=== PATIENT | female | born 1995 ===

== ENCOUNTER 2017-08-21 13:01 | Emergency (ER) | payer OTHER ==
[2017-08-21 13:01] VITALS: BMI 21.7
[2017-08-21] MEDS ORDERED: Sodium Chloride 0.9% 1,000 ML IV STA (13:24)
--- NOTE | 2017-08-21 14:02 | ED PDOC ---
HPI: General Adult Time Seen by Provider: 08/21/17 13:16 Chief Complaint (Nursing): Back Pain Chief Complaint (Provider): Back Pain and abdominal pain History Per: Patient History/Exam Limitations: no limitations Onset/Duration Of Symptoms: Days (3 days) Additional Complaint(s): 21 year old female presents to the emergency department with a complaint of a right lower back pain radiating to the right lower abdominal region x3 days. States that pain is worse when laying on affected side and is unrelated to movement. Further states that she was checking her sisters temperature who had a fever and checked hers with results of 100.5, tympanic although she was not feeling febrile. Reports taking Motrin around 6am today, 08/21/2017. Denies previous abdominal surgeries, chest pain, shortness of breath, pain with micturition, blood in urine, frequency, urgency, bowel/bladder incontinence, nausea, vomiting, or diarrhea. Last bowel movement: Sunday on 08/18/2017. ( This is normal for patient) Past Medical History Reviewed: Historical Data, Nursing Documentation, Vital Signs Vital Signs: Last Vital Signs Temp 98.0 F 08/21/17 16:22 Pulse 74 08/21/17 16:22 Resp 16 08/21/17 16:22 BP 114/72 08/21/17 16:22 Pulse Ox 98 08/21/17 16:22 - Medical History PMH: Gastritis - Surgical History Surgical History: Endoscopy - Family History Family History: States: No Known Family Hx - Immunization History Hx Tetanus Toxoid Vaccination: Yes Hx Influenza Vaccination: No Hx Pneumococcal Vaccination: No - Home Medications Home Medications: Ambulatory Orders Medication Instructions Recorded Sennosides [Perdiem] 15 mg PO DAILY 12/24/13 Ibuprofen [Motrin Tab] 600 mg PO Q6 PRN #12 tab 08/21/17 Sulfamethoxazole/Trimethoprim 1 tab PO BID #14 tab 08/21/17 [Bactrim DS 800 mg-160 mg] - Allergies Allergies/Adverse Reactions: Allergies Allergy/AdvReac Type Severity Reaction Status Date / Time No Known Allergies Allergy Verified 07/05/14 20:49 Review of Systems ROS Statement: Except As Marked, All Systems Reviewed And Found Negative (As per HPI, otherwise negative) Constitutional: Positive for: Fever (100.5, tympanic. ) Cardiovascular: Negative for: Chest Pain Respiratory: Negative for: Shortness of Breath Gastrointestinal: Positive for: Abdominal Pain (right lower region). Negative for: Nausea, Vomiting, Diarrhea Genitourinary Female: Negative for: Dysuria, Frequency (urgency), Incontinence ( bowel or bladder), Hematuria, Other (previous abdominal surgeries) Musculoskeletal: Positive for: Back Pain (right lower region) Physical Exam - Reviewed Vital Signs Reviewed: Yes - Physical Exam Appears: Positive for: Well, Non-toxic, In Acute Distress (Mild painful distress ) Head Exam: Positive for: ATRAUMATIC, NORMAL INSPECTION Skin: Positive for: Normal Color Eye Exam: Positive for: Normal appearance, EOMI, PERRL. Negative for: Conjunctival injection Cardiovascular/Chest: Positive for: Regular Rate, Rhythm. Negative for: Murmur Respiratory: Positive for: Normal Breath Sounds. Negative for: Accessory Muscle Use, Wheezing, Respiratory Distress Gastrointestinal/Abdominal: Positive for: Normal Exam, Soft. Negative for: Tenderness (to deep palpation ), Other (psoas and obturator sign) Back: Positive for: Normal Inspection, R CVA Tenderness (Mild). Negative for: L CVA Tenderness Neurologic/Psych: Positive for: Alert, Oriented (x3) - Laboratory Results Result Diagrams: 08/21/17 13:53 08/21/17 13:53 - ECG O2 Sat by Pulse Oximetry: 100 (RA) Pulse Ox Interpretation: Normal - Progress ED Course And Treament: 1420 On re-evaluation, pt. reports moderate pain improvement. Informed of results and need for CT agrees with plan. CT abd/pelvis w/o contrast, urine culture, rocephin 1gm IV ordered. Medical Decision Making Medical Decision Making: Time: 1353 Initial impression: Lower back and abdominal pain Initial plan: CMP NPO Diet Urine preg CBC w. diff Toradol 30 mg IVP Sodium Chloride 1L IV Blood Culture Urinalysis Reevaluation Time: 1549 Abd & pelvis CT FINDINGS: LOWER THORAX: Unremarkable. LIVER: Unremarkable. No gross lesion or ductal dilatation. GALLBLADDER AND BILE DUCTS: Unremarkable. PANCREAS: Unremarkable. No gross lesion or ductal dilatation. SPLEEN: Unremarkable. ADRENALS: Unremarkable. No mass. KIDNEYS AND URETERS: Unremarkable. No hydronephrosis. No solid mass. VASCULATURE: Unremarkable. No aortic aneurysm. BOWEL: Unremarkable. No obstruction. No gross mural thickening. APPENDIX: Unremarkable. Normal appendix. PERITONEUM: Unremarkable. No free fluid. No free air. LYMPH NODES: Unremarkable. No enlarged lymph nodes. BLADDER: Unremarkable. REPRODUCTIVE: Intrauterine device in place. Cervical nabothian cyst. BONES: No acute fracture. OTHER FINDINGS: None. IMPRESSION: No obstructive uropathy or evidence of recently passed genitourinary calculus. No acute abdominal pelvic pathology. Time: 1557 Medically stable for discharge and advised to follow up with primary care doctor for further evaluation. Given Rx for Motrin 600 mg and Bactrim DS 800mg - 160 mg. Clinical impression: Urinary tract infection (UTI) Scribe Attestation: Documented by Lisandra Benton, acting as a scribe for Christian Tan PA-C. Provider Scribe Attestation: All medical record entries made by the Scribe were at my direction and personally dictated by me. I have reviewed the chart and agree that the record accurately reflects my personal performance of the history, physical exam, medical decision making, and the department course for this patient. I have also personally directed, reviewed, and agree with the discharge instructions and disposition. Disposition - Clinical Impression Clinical Impression: UTI (urinary tract infection) - Patient ED Disposition Is Patient to be Admitted: No Counseled Patient/Family Regarding: Studies Performed, Diagnosis, Need For Followup, Rx Given - Disposition Referrals: Mert Handley [Outside] Disposition: Routine/Home Disposition Time: 15:57 Condition: IMPROVED Additional Instructions: Follow up with your primary care doctor for further evaluation. Return to ED immediately if symptoms worsen. Prescriptions: Ibuprofen [Motrin Tab] 600 mg PO Q6 PRN #12 tab PRN Reason: fever or pain Sulfamethoxazole/Trimethoprim [Bactrim DS 800 mg-160 mg] 1 tab PO BID #14 tab Instructions: Urinary Tract Infection, Adult (DC) Forms: [employer] (Telugu) Print Language: BOLIVIAN
[2017-08-21 14:05] LABS: BASO % 0.3 % (0.0-2.0); EOS # 0.3 K/uL (0.0-0.7); EOS % 2.4 % (0.0-4.0); HEMOGLOBIN 13.2 g/dL (12.0-16.0); LYMPH # 1.9 K/uL (1.0-4.3); MEAN CORPUSCULAR HGB CONC 33.7 g/dL (33.0-37.0); MEAN PLATELET VOLUME 8.3 fl (7.2-11.7); MONO # 1.2 K/uL (0.0-0.8); MONO % 10.7 % (0.0-10.0); NEUT # 7.4 K/uL (1.8-7.0); NEUT % 68.6 % (50.0-75.0); RBC 4.57 Mil/uL (3.80-5.20); RED CELL DISTRIBUTION WIDTH 12.9 % (11.5-14.5); WHITE BLOOD COUNT 10.8 K/uL (4.8-10.8)
[2017-08-21 14:18] LABS: SQUAMOUS EPITHIAL 2 /hpf (0-5); URINE BACTERIA FEW (<OCC); URINE BILIRUBIN NEGATIVE (NEGATIVE); URINE BLOOD SMALL (NEGATIVE); URINE CLARITY CLOUDY (Clear); URINE COLOR YELLOW (YELLOW); URINE GLUCOSE (UA) NEG (Normal); URINE LEUKOCYTE ESTERASE SMALL Leu/uL (Negative); URINE PROTEIN 30 mg/dL (NEGATIVE); URINE UROBILINOGEN 0.2-1.0 mg/dL (0.2-1.0)
[2017-08-21 14:22] LABS: ALB/GLOB RATIO 1.3 (1.0-2.1); ALBUMIN 4.3 g/dL (3.5-5.0); ALT/SGPT 30 U/L (9-52); AST/SGOT 25 U/L (14-36); BLOOD UREA NITROGEN 6 mg/dl (7-17); CALCIUM 9.2 mg/dL (8.4-10.2); GFR AFRICAN-AMERICAN > 60; GFR NON-AFRICAN AMERICAN > 60
[2017-08-21] MEDS ORDERED: cefTRIAXone (Rocephin) 1 gm Inj ONE (14:27)
--- NOTE | 2017-08-21 15:50 | CT ---
PROCEDURE: CT Abdomen and Pelvis without intravenous contrast HISTORY: R flank pain, UTI COMPARISON: None. TECHNIQUE: Contiguous images were obtained from the domes of the diaphragms to the upper thighs without the administration of intravenous contrast. Oral contrast was not administered. Radiation dose: Total exam DLP = 316.4 mGy-cm. This CT exam was performed using one or more of the following dose reduction techniques: Automated exposure control, adjustment of the mA and/or kV according to patient size, and/or use of iterative reconstruction technique. FINDINGS: LOWER THORAX: Unremarkable. LIVER: Unremarkable. No gross lesion or ductal dilatation. GALLBLADDER AND BILE DUCTS: Unremarkable. PANCREAS: Unremarkable. No gross lesion or ductal dilatation. SPLEEN: Unremarkable. ADRENALS: Unremarkable. No mass. KIDNEYS AND URETERS: Unremarkable. No hydronephrosis. No solid mass. VASCULATURE: Unremarkable. No aortic aneurysm. BOWEL: Unremarkable. No obstruction. No gross mural thickening. APPENDIX: Unremarkable. Normal appendix. PERITONEUM: Unremarkable. No free fluid. No free air. LYMPH NODES: Unremarkable. No enlarged lymph nodes. BLADDER: Unremarkable. REPRODUCTIVE: Intrauterine device in place. Cervical nabothian cyst. BONES: No acute fracture. OTHER FINDINGS: None. IMPRESSION: No obstructive uropathy or evidence of recently passed genitourinary calculus. No acute abdominal pelvic pathology.
[2017-08-21 16:23] VITALS: BP 114/72; PULSE 74; RESP 16; TEMP 98
[2017-08-21 19:05] VITALS: O2SAT 100
== END 2017-08-21 16:22 | disposition home or self-care (01) ==
LOC: SUPCPDRO 13:01 → H.ER 13:01
DX: N39.0 Urinary tract infection, site not specified (principal)
CPT/HCPCS: 74176; 80053; 81003; 81025; 85025; 87040; 87086; 87181; 96361; 96365; 96375; 99283; J0696; J1885; J7030